=== PATIENT | female | born 1985 | race Caucasian/White ===

== ENCOUNTER 2019-04-05 06:14 | Day surgery (SDC) | payer MEDICAID ==
[2019-04-04 10:06] LABS: HEMATOCRIT 39.3 % (36.0-48.0); MCH 30.8 pg (26.0-34.0); MCHC 35.6 g/dL (31.0-37.0); MCV 86.4 fL (80.0-100.0); MEAN PLATELET VOLUME 10.4 fL (7.4-10.4); RBC 4.55 10x6/uL (4.00-5.40); RDW 12.3 % (11.5-14.5)
[~2019-04-05] VITALS: Ht 165.1 cm; Wt 93.0 kg
[~2019-04-05 06:14] MED LIST: CELEXA10 MG PO
[2019-04-05 06:51] VITALS: BP 123/75; Ht 165.1 cm; Wt 93.0 kg
--- NOTE | 2019-04-12 09:50 | OP ---
PATIENT NAME: AL DREW MEDICAL RECORD: [id number] :83 LOCATION:D.[facility] ADMISSION DATE: SURGEON: SHERLYN SHORT DPM DATE OF OPERATION: 04/05/2019 PREOPERATIVE DIAGNOSES: 1. HAV, right foot. 2. Instability, right first met cuneiform joint. POSTOPERATIVE DIAGNOSES: 1. HAV, right foot. 2. Instability, right first met cuneiform joint. PROCEDURES: 1. Peck bunionectomy, right foot. 2. First met cuneiform joint fusion, right foot. ANESTHESIA: General with preoperative block per the anesthesia department. HEMOSTASIS: Right thigh tourniquet at 350 mmHg. PREOPERATIVE DETAILS: The patient was taken to the OR and placed on the operating table in a supine position. This was followed by induction of general anesthesia. The right extremity was then prepped and draped in usual aseptic technique followed by exsanguination and inflation of tourniquet. PROCEDURE #1: Peck bunionectomy, right foot. A 15-blade was used to create an incision from the dorsal aspect of the medial cuneiform distally to the base of the proximal phalanx of the hallux. The incision was deepened down through subcutaneous tissue being sure to avoid all vital structures. Dissection was carried down to the first MPJ where an inverted L capsulotomy was performed. The medial capsular flap was reflected and the head of the first metatarsal was delivered. A sagittal saw was used to resect the medial eminence. Attention was then directed to the first interspace where a lateral release was performed. PROCEDURE #2: First met cuneiform joint fusion, right foot. The incision as described in #1 was carried down to the periosteum being sure to preserve the medial dorsal cutaneous nerve. A linear periosteal incision was made. The joint was delivered. A sagittal saw was used to resect the joint. Temporary fixation was placed and a 5-hole plate with one screw crossing the fusion site was placed with excellent rigid internal fixation as well as alignment of the first ray. C-arm was used to verify good alignment as well as hardware placement. The wound was flushed. The joint capsule was repaired with 2-0 Vicryl, the periosteum and deep tissue were reapproximated with 2-0 Vicryl. The subcutaneous tissue was reapproximated with 4-0 Rapide and the skin was closed with 4-0 Rapide in a subcuticular technique followed by Dermabond. Adaptic, 4 x 4, and Conform were used to dress the wound followed by application of modified Abel compression dressing. Tourniquet was deflated. POSTOPERATIVE DETAILS: The patient tolerated the procedure well and left the OR with vital signs stable and vascular status at preoperative levels. The patient was transported to recovery per anesthesia in stable condition. TRANSINT:[id number] Voice Confirmation ID: [id number] DOCUMENT ID: [id number] OPERATIVE REPORT [id number] AL DREW MCKAY DPM at 0950 CC: [id number] DICTATION DATE: 04/05/19 1001 BAFFLE MOUNTER: 04/05/19 1010 [facility] 04/05/19 [place] [id number] [place] [address]
== END 2019-04-05 13:13 | disposition home or self-care (01) ==
LOC: D.OPS 06:14 → D.PAN 08:15 → D.OPS 08:15
PROVIDERS: Anesthesiology; ATTEND Podiatrist
DX: M20.11 Hallux valgus (acquired), right foot (principal); M25.374 Other instability, right foot

== ENCOUNTER → 2019-06-05 09:44 | Outpatient (CLI) | payer MEDICAID ==
[2019-04-05 06:51] VITALS: BMI 34.1
--- NOTE | 2019-06-06 15:54 | EC ---
PATIENT:AL DREW DATE OF SERVICE: 06/05/19 SEX: F MEDICAL RECORD: [id number] DATE OF : 83 LOCATION:D[facility] AGE OF PATIENT: 33 ADMISSION DATE: 06/05/19 REFERRING PHYSICIAN: INTERPRETING PHYSICIAN: OBDULIA EM MD ECHOCARDIOGRAM REPORT ECHO CHARGES 4 ECHO COMPLETE Date: 06/05/19 CLINICAL DIAGNOSIS: HEART MURMUR ECHOCARDIOGRAPHIC MEASUREMENTS (adult normal given) AC root (d.<3.7cm) 3.9 cm LV Septum d (<1.2 cm> 1.4 cm Valve Excursion 1.7 cm LV Septum (systole) 1.5 cm Left Atria (s.<4.0cm> 3.7 cm LVPW d(<1.2cm) 1.6 cm RV (d.<2.3cm) 3.4 cm LVPW (sytole) 1.8 cm LV diastole(<5.6CM) 4.2 cm MV E-F(>70mm/sec) cm LV systole 2.5 cm LVOT Diameter 1.8 cm MV exc.(>10mm) 2.0 cm Est.ejection fraction (50-75%) % DOPPLER: LVIT cm/sec A 58.0 cm/sec E 81.0 cm/sec LA cm/sec RVSP 32 mmHg LVOT 81 cm/sec AOP1/2T m/s Asc. Ao 121 cm/sec RVOT 77 cm/sec RA cm/sec PA 94 cm/sec AV Gradient Peak 5.90 mmHg AV Mean 2.68 mmHg AV Area 1.7 cm MV Gradient Peak 2.61 mmHg MV Mean 1.25 mmHg MV Area cm COMMENTS: Form [employer] Forms: 2 CINDI [employer] Specialist: 3 Dr. Garcia TAPE# pacs Pericardial Effusion N DATE OF SERVICE: Adequate 2D, color flow imaging, spectral Doppler, and M-Mode No LVH. LV internal dimensions are normal. Wall motion is normal. EF is greater than or equal to 55%. Aortic valve is tricuspid. No evidence of stenosis by Doppler interrogation. Left atrium is normal at 3.7 cm. Mitral valve shows no prolapse. Trace MR. Right-sided chambers are grossly normal. Trace TR. ECHOCARDIOGRAM REPORT [id number] AL DREW TRANSINT:[id number] Voice Confirmation ID: [id number] DOCUMENT ID: [id number] OBDULIA EM MD at 1554 CC: [id number] DICTATION DATE: 06/06/19 1316 QUILL MACHINE OPERATOR: 06/06/19 1343 DEP CLI 06/05/19 [place] [id number] [place] [id number]
== END | disposition home or self-care (01) ==
LOC: D.HCCECHO 09:44
PROVIDERS: ATTEND Internal Medicine Interventional Cardiology
DX: R01.1 Cardiac murmur, unspecified (principal)